=== PATIENT | male | born 1955 | race Caucasian/White ===

== ENCOUNTER 2016-09-20 16:58 | Emergency (ER) | payer OTHER ==
[~2016-09-20] VITALS: Ht 182.9 cm; Wt 122.0 kg
[2016-09-20 17:02] VITALS: BP 182/96; PULSE 76; RESP 14; O2SAT 98
[2016-09-20 17:43] VITALS: BP 167/78; PULSE 70; RESP 20; O2SAT 98
[2016-09-20 17:58] LABS: BASOPHILS % (AUTO) 0.1 % (0-3); EOSINOPHILS % (AUTO) 0.5 % (0-5); MONOCYTES % (AUTO) 6.6 % (4-12); Mean Corpuscular Hemoglobin 28.1 pg (27.0-35.0); Mean Corpuscular Volume 78.1 fL (81-100); NEUTROPHILS % (AUTO) 74.3 % (40-74); Platelet Count 140 bil/L (150-400)
[2016-09-20 18:24] LABS: Magnesium 1.7 mg/dL (1.6-2.6)
[2016-09-20 20:58] LABS: APPEARANCE,URINE CLEAR (CLEAR,HAZY); COLOR,URINE YELLOW (YELLOW)
[2016-09-20 20:59] LABS: OCCULT BLOOD,URINE LARGE (NEGATIVE); UROBILINOGEN,URINE NORMAL (NORMAL)
--- NOTE | 2016-09-20 21:25 | ED.REPORT ---
HPI-Abd Pain M 40 and Over Date of Service September 20, 2016 ED Provider: Tashi Lara MD The patient is a 61 year old male who presents to the ED due to left sided back pain onset 10 pm last night and increasing in severity. The pain is 5/10, constant and does not radiate. Pt denies dysuria but did notice hematuria several times in the past 24 hrs. Nothing relieves the pain and pt describes that he has, "no way to get comfortable." When he moved to use the bathroom, his pain spiked. He has no hx of kidney stones. Nursing Notes Stated Complaint: PAIN ON LEFT SIDE Chief Complaint: Male Abdominal Pain Nursing Notes Reviewed: Yes Allergies: Coded Allergies: No Known Allergies (Unverified , 09/20/16) Scheduled Tamsulosin (Flomax) 0.4 Mg Capsule 0.4 MG PO DAILY Scheduled PRN Oxycodone HCl/Acetaminophen 5-325 (Endocet 5-325) 1 Each Tablet 1-2 TABLET PO Q4H PRN PRN For Pain General Time Seen by MD: 20:57 Chief Complaint Other (left sided back pain) Hx Obtained From: Patient Arrived By: Walk-in Sudden in Onset?: Yes Onset Occurred: 9 - 12 hours ago Symptom Duration: Since onset Location: : Back Quality: Painful Radiation: : Does not radiate Severity: Current: Pain level 5 out of 10 Recent Healthcare: No recent doctor visit, No recent hospitalization Similar Sx Previous: No Past Medical History Past Medical History DM Past Surgical History Reports: Appendectomy Social History Other Social History: Local resident Ambulatory Status Independent Review of Systems Male: Reports Hematuria, Denies Dysuria Musculoskeletal: Reports: Back pain (left sided ) Complete sys rev & neg: except as marked. Physical Exam Initial Vital Signs Vital Signs (First) Date Time Temp Pulse Resp B/P Pulse Ox O2 Delivery O2 Flow Rate FiO2 09/20/16 17:02 36.2 76 14 182/96 98 Room Air Initial VS: Reviewed General/Constitutional: Awake, Alert, Cooperative Respiratory / Chest: Atraumatic, Breath sounds NL, Breath sounds = bilat, No respiratory distress, No rales, No rhonchi, No wheezing Cardiovascular: Heart rate NL, Regular rhythm, Heart sounds NL, No gallop, No murmurs, No rubs Abdomen: Soft, Non-tender, BS normoactive Back: No CVA tenderness Head / Eyes: Normocephalic, PERRL Skin: Warm, Dry Neurologic: Oriented X3, Speech NL, No motor deficits Upper Extremity / MS: Full range of motion, No deformity Lower Extremity / Pelvis / MS: Full range of motion, No deformity Interpretation & Diagnostics Interpretation & Diagnostics: CT KUB IMPRESSION: 1. Proximal left ureteral calculus, associated with mild left hydronephrosis. Nonobstructing right superior pole nephrolith. 2. Indentation of the urinary bladder base by enlarged prostate versus urinary bladder base neoplasm. This could be further assessed with cystoscopy, if clinically indicated. Dictated by: Sherita Ewing M.D. on 09/20/2016 at 21:34 Approved by: Sherita Ewing M.D. on 09/20/2016 at 21:37 Lab Results Interpretation Result Diagram: 09/20/16 1730 09/20/16 1730 Test 09/20/16 17:30 09/20/16 20:40 White Blood Count 8.8th/mm3 (3.8-10.1) Red Blood Count 5.81mil/mm3 (4.40-5.80) Hemoglobin 16.3g/dL (13.8-17.2) Hematocrit 45.4% (41.0-50.0) Mean Corpuscular Volume 78.1fL (81-100) Mean Corpuscular Hemoglobin 28.1pg (27.0-35.0) Mean Corpuscular Hemoglobin Concent 35.9% (32.0-37.0) Red Cell Distribution Width 14.4% (12.3-15.4) Platelet Count 140bil/L (150-400) Neutrophils (%) (Auto) 74.3% (40-74) Lymphocytes (%) (Auto) 18.3% (14-46) Monocytes (%) (Auto) 6.6% (4-12) Eosinophils (%) (Auto) 0.5% (0-5) Basophils (%) (Auto) 0.1% (0-3) Sodium Level 131mEq/L (134-144) Potassium Level 3.7mEq/L (3.5-5.2) Chloride Level 91mEq/L (97-108) Carbon Dioxide Level 22mmol/L (18-29) Blood Urea Nitrogen 23mg/dL (8-27) Creatinine 0.97mg/dL (0.76-1.27) Estimat Glomerular Filtration Rate 84mL/min (>59) Glucose Level 249mg/dL (60-99) Calcium Level 10.0mg/dL (8.5-10.1) Magnesium Level 1.7mg/dL (1.6-2.6) Total Bilirubin 0.8mg/dL (0.0-1.2) Aspartate Amino Transf (AST/SGOT) 21U/L (0-50) Alanine Aminotransferase (ALT/SGPT) 25U/L (0-44) Alkaline Phosphatase 44U/L (25-160) Total Protein 7.2g/dL (6.4-8.4) Albumin 4.2g/dL (3.4-5.0) Lipase 13U/L (13-60) Hold Kinsey Top Tube Received (Received) Urine Color Yellow (YELLOW) Urine Appearance Clear (CLEAR,HAZY) Urine pH 6.0 (5.0-8.0) Urine Specific [place] 1.010 (1.003-1.035) Urine Protein Negativemg/dL (NEG,TRACE) Urine Glucose (UA) 500mg/dL (NEGATIVE) Urine Ketones 40mg/dL (NEGATIVE) Urine Occult Blood Large (NEGATIVE) Urine Nitrite Negative (NEGATIVE) Urine Bilirubin Negative (NEGATIVE) Urine Urobilinogen Normalmg/dL (NORMAL) Urine Leukocyte Esterase Negative (NEGATIVE) Urine RBC 3-10/hpf (0-2) Urine WBC 0-5/hpf (0-5) Urine Epithelial Cells Occasional/hpf (NONE-MOD) Urine Crystals None seen (NONE SEEN) Urine Bacteria None/hpf (NONE-FEW) Urine Hyaline Casts None/lpf (NONE) Urine Granular Casts None seen (NONE SEEN) Urine Waxy Casts None seen (NONE SEEN) Urine Red Blood Cell Casts None seen (NONE SEEN) Urine White Blood Cell Casts None seen (NONE SEEN) Urine Mucus None seen (None Seen) Urine Trichomonas None seen (NONE SEEN) Urine Yeast None (NONE SEEN) Urinalysis Comment None Urine Culture Reflexed Not indicated Re-Eval/Medical Decision Time of Eval: 23:22 Counseled Regarding: Diagnosis, Lab results, Need for follow-up, When/why to return to ED Discharge & Departure Primary Impression: Nephrolithiasis Disposition: Home Vital Signs - All Vital Signs Date Time Temp Pulse Resp B/P Pulse Ox O2 Delivery O2 Flow Rate FiO2 09/20/16 22:51 103 18 120/54 94 Room Air 09/20/16 17:43 70 20 167/78 98 Room Air 09/20/16 17:02 36.2 76 14 182/96 98 Room Air )( All Prior VS Reviewed: Yes Condition: Stable Patient Instructions: Renal Colic (ED) Additional Instructions: Thank you for entrusting us with your care today. Emergency Department evaluation included interview, examination, labs, and CT. The CT scan showed that you have a 4mm kidney stone. This may take several days or weeks to pass. Strain your urine to catch the stone. Use Ibuprofen and pain medication as needed for pain management. Ibuprofen 600mg 3 or 4 times a day will also help. Take tamsulsosin daily. Get adequate fluids. Follow up with nephrology in the next week. Return to the Emergency Department for any new or worsening symptoms including nausea, vomiting, diarrhea, and increased pain. I hope you feel better soon! Referrals: Teo Barr MD (PCP) Dolores Steel MD Attestation Portion of this note were transcribed by Duyen Angel. I, , personally performed the history, physical exam, and medical decision-making: I reviewed and confirmed the accuracy for the information in the transcribed note. Signed by: sulaiman Quick, 09/20/16 [id number] copies to: Teo Barr MD; Dolores Steel MD, Donald L MD September 20, 2016 21:25 Duyen Angel September 20, 2016 21:42
--- NOTE | 2016-09-20 21:39 | DRSVH ---
PROCEDURE: CT KUB ([id number]) INDICATIONS: L flank pain, hematuria TECHNIQUE: Noncontrast 5 mm thick sections acquired from the diaphragms to the symphysis. 5 mm thick coronal an d sagittal reformats were then performed. For radiation dose reduction, the following was used: aut omated exposure control, adjustment of mA and/or kV according to patient size. COMPARISON: None. FINDINGS: Image quality: Excellent. Lung bases: Lung bases are clear. Heart size is normal. Urinary system: Both kidneys are normal in size. The 8mm diameter calculus within the superior pole right kidney. No right hydronephrosis. There is mild left hydronephrosis. There is moderate left and mild right perinephric fat stranding. Within the proximal left ureter, there is a 4 mm diameter calcu yesika, with Hounsfield in is 350. Both ureters appear non-dilated throughout their expected courses. No calcified bladder stones. The prostate is enlarged. There is overlying indentation of the urinary b ladder base versus a 16mm diameter urinary bladder base mass. Other solid organs: Liver and spleen are normal in size. Gallbladder is within normal limits. Panc reas is normal in contours. There is fatty atrophy of the pancreas. No adrenal nodules. Peritoneum and bowel: Unenhanced bowel loops demonstrate normal wall thickness and caliber. No free fluid or air. Nodes and vessels: No retroperitoneal or mesenteric adenopathy by size criteria. Aorta and inferior vena cava are normal in caliber. Abdominal wall: No ventral hernias. Pelvis: No free pelvic fluid. No inguinal hernias or adenopathy. Bones: No suspicious bony lesions. No vertebral body compression fractures. IMPRESSION: 1. Proximal left ureteral calculus, associated with mild left hydronephrosis. Nonobstructing right [place] perior pole nephrolith. 2. Indentation of the urinary bladder base by enlarged prostate versus urinary bladder base neoplasm. This could be further assessed with cystoscopy, if clinically indicated. Dictated by: Sherita Ewing M.D. on 09/20/2016 at 21:34 Approved by: Sherita Ewing M.D. on 09/20/2016 at 21:37
[2016-09-20 22:51] VITALS: BP 120/54; PULSE 103; RESP 18; O2SAT 94
[2016-09-20] MEDS ORDERED: _oxyCODONE/APAP 5-325 mg Tablet PO PRN (23:35)
[2016-09-20] MEDS ORDERED: TAMS0.4C98 PO (23:38)
[2016-09-20] MEDS ORDERED: OXYC-407 PO (23:38)
[2016-09-21 00:25] VITALS: BP 134/86; PULSE 97; RESP 16; O2SAT 97
== END 2016-09-21 00:15 | disposition home or self-care (01) ==
LOC: SED 17:00
DX: N20.0 Calculus of kidney (principal); E11.9 Type 2 diabetes mellitus without complications
CPT/HCPCS: 36415; 74176; 80053; 81000; 83690; 83735; 85025; 96374; 96375; 96376; 99285; J1885; J2270